=== PATIENT | male | born 1960 | race Caucasian/White ===

== ENCOUNTER 2021-09-21 10:41 | Emergency (ER) | payer OTHER ==
[~2021-09-21] VITALS: Ht 134.6 cm; Wt 95.3 kg
--- NOTE | 2021-09-21 11:02 | NUR ---
BIB RA C/O R FOOT SWELLING AND REDNESS X 8 DAYS. PT ALSO HAS SCABS FROM INJECTION SITES 3 WEEKS OLD ON BILATERAL FEET. HX DM. AAOX4, BREATHING EVEN AND UNLABORED, R FOOT WARM TO TOUCH. EDEMA 3+. AWAITING MD FOR EVAL.
--- NOTE | 2021-09-21 11:45 | NUR ---
SYSTEM DEVELOPMENT ENGINEER AT PT'S BESIDE
--- NOTE | 2021-09-21 12:00 | NUR ---
LEAD PORTFOLIO MANAGER AT PT'S BEDSIDE
[2021-09-21 12:17] LABS: BASOPHILS # (AUTO) 0.1 K/uL (0.0-0.2); BASOPHILS % (AUTO) 0.7 % (0.0-2.0); EOSINOPHILS % (AUTO) 0.5 % (0.0-6.0); HEMATOCRIT 32 % (39-51); HEMOGLOBIN 10.3 g/dL (13.5-17.5); LYMPHOCYTES # (AUTO) 1.8 K/uL (0.8-4.8); MEAN CORPUSCULAR HGB CONC 33 g/dl (31.0-36.0); MEAN CORPUSCULAR VOLUME 94 fL (80-96); MONOCYTES # (AUTO) 1.4 K/uL (0.1-1.30); MONOCYTES % (AUTO) 8.7 % (2.0-12.0); NEUTROPHILS # (AUTO) 12.5 K/uL (1.8-8.9); NEUTROPHILS % (AUTO) 79.1 % (43.0-81.0); PLATELET COUNT (AUTO) 364 K/uL (150-450); RED BLOOD CELL COUNT(AUTO) 3.35 MIL/uL (4.5-6.0); WHITE BLOOD COUNT (AUTO) 15.9 K/uL (4.3-11.0)
[2021-09-21 12:58] LABS: CALCIUM, SERUM 7.9 mg/dL (8.5-10.1); CREATININE 1.9 mg/dL (0.6-1.3)
[2021-09-21] MEDS ORDERED: CLINDAMYCIN 600 MG in IV D5W 100 ML IV ONE (13:30)
[2021-09-21] MEDS ORDERED: IV LR 1000 ML 1,000 ML BAG IV ONE (13:30)
[2021-09-21 13:36] LABS: POTASSIUM 2.8 mmol/L (3.5-5.1)
[2021-09-21] MEDS ORDERED: POTASSIUM CHLORIDE 20 MEQ TAB.PRT.SR PO ONE ×2 (13:44→14:00)
[2021-09-21] MEDS ORDERED: POTASSIUM CL. PREMIX PERIPHER. 50 ML ONE ×2 (13:44→17:30)
--- NOTE | 2021-09-21 14:10 | NUR ---
PHARMACY CONFIRMED THAT CLEOMYCIN AND POTASSIUM CHLORIDE MEDICATIONS ARE COMPATIBLE WITH LACTATED RINGERS.
--- NOTE | 2021-09-21 14:59 | NUR ---
IV MEDICATION INFUSING. PT TOLERATING WELL.
[2021-09-21] MEDS: POTASSIUM CL. PREMIX PERIPHER. 50 ML IV SCH ×2 (15:15→17:30)
--- NOTE | 2021-09-21 18:08 | NUR ---
AP [phone] FROM [facility] CALLED PT ACCEPTED UNDER DR. ESPINOSA TO ROOM 2250 MS BED PLEASE CALL [phone] FOR REPORT.
--- NOTE | 2021-09-21 18:16 | NUR ---
[facility] CALLED WITH ETA OF 90 MINS PER YOLA.
--- NOTE | 2021-09-21 18:23 | NUR ---
PT LAYING COMFORTABLY IN BED. AAOX4, SPEAKS CLEARLY, ON 3 L NASAL CANNULA
--- NOTE | 2021-09-21 19:02 | NUR ---
REPORT GIVEN TO RIGO JONES FOR SARAH
--- NOTE | 2021-09-21 19:15 | NUR ---
RECEIVED PATIENT IN BED. A/OX4, MONGOLIAN SPEAKING. ON 3L/MIN O2 SAT 97%. REPSIRATIONS EVEN AND UNLABORED. NO RESP DISTRESS.
--- NOTE | 2021-09-21 19:58 | NUR ---
REPORT GIVEN TO EMS AT BEDSIDE
--- NOTE | 2021-09-21 19:58 | NUR ---
REPORT GIVEN TO ANDREA JONES AT [facility].
[2021-09-21 21:11] VITALS: BP 96/55
== END 2021-09-21 20:00 | disposition short-term general hospital (02) ==
LOC: ER 10:50
DX: L97.519 Non-pressure chronic ulcer of other part of right foot with unspecified severity (principal); M79.671 Pain in right foot; E11.621 Type 2 diabetes mellitus with foot ulcer; G89.29 Other chronic pain; R26.2 Difficulty in walking, not elsewhere classified; I10 Essential (primary) hypertension; R60.0 Localized edema; Z20.822 Contact with and (suspected) exposure to COVID-19
CPT/HCPCS: 36415; 73610; 73630; 80048; 85025; 87426; 93971; 96365; 96366; 96367; 99285; C9803; J3480 ×2; J3490; J7030; J7060; J7120 ×2

== ENCOUNTER 2022-06-13 00:45 | Emergency (ER) | payer OTHER ==
[~2022-06-13] VITALS: Ht 162.6 cm; Wt 90.7 kg
[2022-06-13] MEDS: FENTANYL PF 100MCG/2ML AMPUL IV ONE ×2 (00:15→01:15)
--- NOTE | 2022-06-13 01:00 | NUR ---
SYLVIA 76 FROM HOME FOR R SHOUDLER DISLOCATION, + DEFORMITY. A, OX4 . PLACED IN BED 3 ER. LILIBETH FOR 'S EVAL
[2022-06-13] MEDS ORDERED: ACETAMINOPHEN ES 500 MG TABLET ONE (01:09)
[2022-06-13] MEDS ORDERED: FENTANYL PF 100MCG/2ML AMPUL ONE (01:09)
--- NOTE | 2022-06-13 01:16 | NUR ---
PT TRANSPORTED TO CT VIA [facility]
--- NOTE | 2022-06-13 01:25 | NUR ---
PT RETURNED FROM CT
[2022-06-13] MEDS ORDERED: IV NS 0.9% 500 ML BAG IV ONE (01:30)
[2022-06-13] MEDS ORDERED: ACETAMINOPHEN ES 500 MG TABLET PO ONE (01:30)
[2022-06-13] MEDS ORDERED: IBUP-1955 PO (02:42)
[2022-06-13 03:19] VITALS: BP 154/73
--- NOTE | 2022-06-13 03:19 | NUR ---
Patient discharged to home in stable condition. Written and verbal after care instructions given. Patient verbalizes understanding of instruction.IV removed. Catheter intact and site benign. Pressure and 4x4 applied to site. No bleeding noted.
== END 2022-06-13 03:19 | disposition home or self-care (01) ==
LOC: ER 00:47
DX: M24.411 Recurrent dislocation, right shoulder (principal); I10 Essential (primary) hypertension; Z87.39 Personal history of other diseases of the musculoskeletal system and connective tissue
CPT/HCPCS: 99284; 23650; 96360; 73030 ×2; J3010; J7040